=== PATIENT | male | born 1990 | race African-American/Black ===

== ENCOUNTER 2022-07-21 19:58 | Emergency (ER) | payer SELFPAY ==
[2022-07-21 20:50] LABS: ANION GAP 10.7 meq/L (7-15)
[2022-07-21] MEDS ORDERED: Benzonatate 100 MG Cap PO ONE (21:25)
[2022-07-21] MEDS ORDERED: methylPREDNISolone Sodium Succinate 125 MG/2 ML SDV IM ONE (21:26)
== END 2022-07-21 22:10 | disposition home or self-care (01) ==
LOC: LL.ED 19:58
DX: J98.8 Other specified respiratory disorders (principal); Z72.0 Tobacco use
CPT/HCPCS: 36415; 71046; 80053; 83605; 85025; 87804; 96372; 99283; 99284; A9270-GY; J2930